=== PATIENT | female | born 1930 | race Caucasian/White ===

== ENCOUNTER 2018-07-22 11:01 | Observation (INO) | payer MEDICARE, BC ==
[~2018-07-22] VITALS: Ht 167.6 cm; Wt 63.1 kg
[~2018-07-22 11:01] MED LIST: AMOXICILLIN875 MG PO; ANTIVERT/2525 M1 PO; ASPI81TA PO; CALCIUM 600600 M2 PO; CALTRATE 600600 MG PO; CENTRUM SILVER1 CTB PO; ICAPS LUTEIN &1 TAB PO; METAMUCIL1 PDR PO; MULTIPLE VITAMI1 CAP PO; ZOFRAN 4MG T4 MG/TAB PO
[2018-07-22] MEDS ORDERED: SYSTANE 0.4%-0.1 SOL OU (11:12)
[2018-07-22 12:08] LABS: BASO % 0.3 % (0.0-2.0); EOS % 0.2 % (0-4.0); GRAN # 6.5 (1.4-6.5); GRAN % 69.8 % (42.2-75.2); HEMOGLOBIN 11.2 g/dl (12.5-16.0); LYMPH # 1.5 (1.2-3.4); LYMPH % 15.8 % (20.0-51.0); MEAN CELL VOLUME 89 fl (80.0-100.0); MEAN CORPUSCULAR HEMOGLOBIN 28 pg (27.0-31.0); MEAN CORPUSCULAR HGB CONC 32 g/dl (33.0-37.0); MEAN PLATELET VOLUME 10.2 fl (7.4-10.4); MONO # 1.3 (0.1-0.6); MONO % 13.4 % (1.7-9.3); PLATELET COUNT 232 K/mm3 (130-400); RED BLOOD COUNT 3.98 M/mm3 (4.10-5.30); REDCELL DISTRIBUTION WIDTH-CV 13.2 % (11.5-14.5)
[2018-07-22 12:09] LABS: HEMATOCRIT 35.3 % (37.0-47.0)
[2018-07-22 12:13] LABS: ALBUMIN 3.3 gm/dL (3.5-5.0); BILIRUBIN,TOTAL 0.3 mg/dL (0.0-1.0); CALCIUM 8.7 mg/dL (8.4-10.2); CREATININE, serum 0.89 (0.52-1.25); POTASSIUM 3.5 mmol/L (3.4-5.0); TOTAL PROTEIN 6.2 gm/dL (6.4-8.2)
[2018-07-22 13:14] LABS: TROPONIN-I < 0.012 ng/mL (0.000-0.035)
[2018-07-22 16:55] VITALS: BP 135/54; PULSE 80; TEMP 99.5
--- NOTE | 2018-07-22 18:10 | NUR ---
Admission assessment completed, alert/oriented, vital signs stable/ low grade temp 99.5, denies pain or discomfort, heart RRR/ troponin negative thus far, lungs CTA/ dminished in right side, IV abx infusing, daughter present, notified hospitalist of her arrival and have been by to eval, instructed on needing sputum and urine specimens for culture, denies needs at this time
[2018-07-22 20:20] VITALS: BP 125/60; PULSE 80; TEMP 99.8
--- NOTE | 2018-07-22 20:50 | NUR ---
Shift assessment complete. Pt resting in bed, sleepy but easy to wake, a&o, cooperative c cares. Pt denies pain or any other c/o at this time. IV patent. Tele in place. Pt denies needs. Call light in reach, will monitor.
[2018-07-22 23:13] VITALS: BP 114/48; PULSE 91; TEMP 98.2
[2018-07-23 02:34] VITALS: BP 142/65; PULSE 92; TEMP 98.1
--- NOTE | 2018-07-23 02:59 | NUR ---
PT HAD INSP WHEEZES RUL BREATH SOUNDS MUCH IMPROVED POST SVN
[2018-07-23 07:43] LABS: BASO % 0.3 % (0.0-2.0); EOS % 0.5 % (0-4.0); GRAN # 6.5 (1.4-6.5); GRAN % 74.5 % (42.2-75.2); HEMOGLOBIN 11.4 g/dl (12.5-16.0); LYMPH # 0.9 (1.2-3.4); LYMPH % 10.7 % (20.0-51.0); MEAN CELL VOLUME 90 fl (80.0-100.0); MEAN CORPUSCULAR HEMOGLOBIN 28 pg (27.0-31.0); MEAN CORPUSCULAR HGB CONC 31 g/dl (33.0-37.0); MEAN PLATELET VOLUME 10.5 fl (7.4-10.4); MONO # 1.2 (0.1-0.6); MONO % 13.4 % (1.7-9.3); PLATELET COUNT 249 K/mm3 (130-400); RED BLOOD COUNT 4.04 M/mm3 (4.10-5.30); REDCELL DISTRIBUTION WIDTH-CV 13.3 % (11.5-14.5)
[2018-07-23 07:47] LABS: HEMATOCRIT 36.4 % (37.0-47.0)
[2018-07-23 07:57] LABS: ANION GAP 6 mmol/L (7-16); BLOOD UREA NITROGEN 9 mg/dL (7-17); CALCIUM 8.5 mg/dL (8.4-10.2); CARBON DIOXIDE 28 mmol/L (22-30); CHLORIDE 101 mmol/L (98-107); CHOLESTEROL 150 mg/dL (120-200); CREATININE, serum 0.73 (0.52-1.25); GLUCOSE 106 mg/dL (74-106); HDL CHOLESTEROL 49 mg/dL; LDL CHOLESTEROL 91 mg/dL; MAGNESIUM 1.9 mg/dL (1.6-2.3); POTASSIUM 3.7 mmol/L (3.4-5.0); SODIUM 136 mmol/L (137-145); TRIGLYCERIDE 50 mg/dL
[2018-07-23 08:02] LABS: TROPONIN-I < 0.012 ng/mL (0.000-0.035)
--- NOTE | 2018-07-23 08:23 | NUR ---
Assessment completed, alert/oriented, vital signs stable, denies pain or discomfort, lungs CTA/ diminished in right lung malik and bases, has not been able to provide us with a sputum specimen for Cx, heart RRR/distal pulses are palpable, she is eating and drinking well, denies any further episodes of chest pain or disocmfort, has been SR on tele, patient sitting up eating breakfast, daughter present in room, denies other needs at this time
[2018-07-23 08:37] VITALS: BP 122/48; PULSE 91; TEMP 99.1
[2018-07-23] MEDS ORDERED: OMNICEF 300MG300 MG PO (09:24)
[2018-07-23] MEDS ORDERED: ZITHROMAX500 M2 PO (09:24)
[2018-07-23] MEDS ORDERED: PROAIR HFA0.09 MG/AC IH (09:25)
--- NOTE | 2018-07-23 09:45 | NUR ---
SW met with patient to discuss discharge planning. Patient lives independently [facility]. Patient's PCP is Dr Leblanc and she obtains prescriptions from [facility]. Patient does not use any DME or home health services. Patient does have a DPOA. Patient will be discharged later today. No discharge needs.
--- NOTE | 2018-07-23 12:00 | NUR ---
Discharge orders reviewed with the patient and her daughter, instructed to follow up with PCP and have Cardiac stress test as we have scheduled for her, instructed her to finish antibiotics as prescribed/ scripts sent to pharmacy for her, IV removed, leaving with her daughter, I personally escorted them out the door
== END 2018-07-23 12:04 | disposition home or self-care (01) ==
LOC: COL.ER 11:01 → MEDICAL 14:39
PROVIDERS: Emergency Medicine; Nurse Practitioner Family; Nurse Practitioner Primary Care; ADMIT Internal Medicine
DX: R07.9 Chest pain, unspecified (principal); M54.9 Dorsalgia, unspecified; J18.9 Pneumonia, unspecified organism; E78.5 Hyperlipidemia, unspecified; Z88.8 Allergy status to other drugs, medicaments and biological substances
CPT/HCPCS: A4216; G0378; J0456; J0696; J1650; J2270; J7030; J7050; Q9967